=== PATIENT | male | born 1935 | race Caucasian/White ===

== ENCOUNTER 2017-11-27 06:01 | Outpatient (CLI) | payer MEDICARE ==
[~2017-11-27] VITALS: Ht 175.3 cm; Wt 87.3 kg
--- NOTE | ~2017-11-27 | HEMODYNAMI ---
PATIENT:VISH ROSS MEDICAL RECORD: [id number] : 35 LOCATION:[facility] ADMISSION DATE: 11/27/17 Generatedon:11/27/20178:34 Patient name: VISH ROSS Patient #: [id number] SSN: D OB: 1935 Date of study: 11/27/2017 Page: Of Hemodynamic Procedure Report Patient Data Patient Demographics Procedure consent was obtained First Name: VISH Gender: Male Last Name: VANDANA : 1935 Patient #: [id number] Age: 82 year(s) Race: Unknown Additional ID: [id number] Contact details Address: [address] [place] [address] DRIVE State: [place] City: [place] Zip code: [address] Past Medical History Allergies Allergen Reaction Date Comments Reported Penicillins 11/27/2017 Admission Admission Data Admission Date: 11/27/2017 Admission Time: 6:01 Procedure Procedure Types Cath Procedure Diagnostic Procedure LHC LHC w/Coronaries w/Grafts Aortic Root Angiography Sedation Charges Moderate Sedation up to 15 minutes PCI Procedure Coronary Stent Coronary Stent Initial Procedure Description Procedure Date Procedure Date: 11/27/2017 Procedure Start Time: 7:59 Procedure End Time: 8:34 Procedure Staff Name Function Ascencion Ornelas MD Performing Physician Beatriz Elliott RT Monitor Anushka Benitez RN Nurse Lindsey Julian RT Scrub Procedure Data Cath Procedure Fluoroscopy Diagnostic fluoroscopy Total fluoroscopy Time: 7.7 time: 7.7 min min Diagnostic fluoroscopy Total fluoroscopy dose: dose: 1007 mGy 1007 mGy Contrast Material Contrast Material Type Amount (ml) Isovue 370 112 Entry Location Entry Primary Successful Side Size Upsize Upsize Entry Closure Succes sful Closure Location (Fr) 1 (Fr) 2 (Fr) Remarks Device Remarks Femoral Right 5 Fr 6 Fr artery Short Estimated blood loss: 10 ml Diagnostic catheters Device Type Used For End Catheter Placement MULTIPACK JL 4.0 5Fr Left Coronary catheter Angiography DIAGNOSTIC AR MOD 5Fr Right Coronary Catheter ([id number]) Angiography DIAGNOSTIC AR MOD 5Fr SVG Angiography Catheter ([id number]) DIAGNOSTIC AR MOD 5Fr Right Coronary Catheter ([id number]) Angiography DIAGNOSTIC IM 5Fr Internal mammary catheter ([id number]) arteriography MULTIPACK Pigtail 5 Fr LV Angiography catheter MULTIPACK Pigtail 5 Fr Aortic Root catheter Angiography Procedure Complications No complications Procedure Medications Medication Administration Route Dosage Oxygen NC 2 l/min Lidocaine 2% added to field 20 Heparin Flush Bag added to field 2 bags (1000units/500ml NS) 0.9% NaCl I.V. 100 ml/hr Versed I.V. 1 mg Fentanyl I.V. 50 mcg Versed I.V. 1 mg Fentanyl I.V. 50 mcg Fentanyl I.V. 50 mcg Heparin Bolus I.V. 8500 units Fentanyl I.V. 50 mcg Hemodynamics Rest Heart Rate: 74 (bpm) Pressure Samples Time Site Value (mmHg) Purpose Heart Use Rate(bpm) 8:09 LV 113/-2,11 EDP 78 8:10 AO 113/47(73) Pullback 77 8:10 LV 115/-2,19 Pullback 77 Gradients Valve Time Site 1 Site 2 Mean SEP/DFP Peak To Heart Use (mmHg) (sec/min) Peak Rate (mmHg) (bpm) Aortic 8:10 LV AO 6 17 2 77 115/-2,19 113/47(73) Calculations Valve P-P Mean Valve Index Valve Source Name Gradient Area Flow (cm2) Aortic 2 6 2 6 Snapshots Pre Cath Intra NCS Post Cath Vital Signs Time Heart Resp SPO2 etCO2 NIBP Rhythm Pain Sedation Rate (ipm) (%) (mmHg) (mmHg) Status Level (bpm) 7:47:43 69 15 96 0 117/70(96) NSR 0 (11) 10(A) , No pain 7:52:30 72 16 95 0 120/66(98) NSR 0 (11) 10(A) , No pain 7:57:17 72 14 88 0 127/68(94) NSR 0 (11) 9(A) , No pain 8:02:05 74 16 95 0 125/69(93) NSR 0 (11) 9(A) , No pain 8:06:56 78 18 96 0 122/66(88) NSR 0 (11) 9(A) , No pain 8:11:45 75 13 96 8.2 109/61(93) NSR 0 (11) 9(A) , No pain 8:16:34 75 15 96 0 112/59(81) NSR 0 (11) 9(A) , No pain 8:21:18 82 15 95 0 102/67(86) NSR 0 (11) 9(A) , No pain 8:26:38 80 16 96 19.4 123/65(85) NSR 0 (11) 10(A) , No pain 8:31:27 77 13 97 0 124/67(85) NSR 0 (11) 10(A) , No pain Medications Time Medication Route Dose Verified Delivered Reason Notes Effectiveness by by 7:46:24 Oxygen NC 2 Ascencion Buffie used for l/min Johnson Benitez RN procedure 7:46:32 Lidocaine 2% added 20ml Ascencion Ascencion for local to vial Johnson Ornelas MD anesthetic field 7:46:38 Heparin Flush added 2 Ascencion Ascencion used for Bag to bags Johnson Ornelas MD procedure (1000units/500ml field NS) 7:46:46 0.9% NaCl I.V. 100 Ascencion Buffie Per physician ml/hr Johnson Benitez RN 7:51:48 Versed I.V. 1 mg Ascencion Buffie for sedation Johnson Benitez RN 7:51:53 Fentanyl I.V. 50 Ascencion Buffie for sedation mcg Johnson Benitez RN 8:01:03 Versed I.V. 1 mg Ascencion Buffie for sedation Johnson Benitez RN 8:01:07 Fentanyl I.V. 50 Ascencion Buffie for sedation regina Benitez RN 8:13:56 Fentanyl I.V. 50 Ascencion Buffie for sedation mcg Johnson Benitez RN 8:16:30 Heparin Bolus I.V. 8,500 Ascencion Buffie for verifie d units Johnson Benitez RN anticoagulation with dr ornelas 8:21:28 Fentanyl I.V. 50 Ascencion Buffie for sedation mcg Johnson Benitez RN Procedure Log Time Note 7:28:38 Time tracking: Regular hours (M-F 7:00 - 5:00) 7:28:42 Plan of Care:Hemodynamics will remain stable., Cardiac rhythm will remain stable., Comfort level will be maintained., Respiratory function will remain adequate., Patient/ family verbilizes understanding of procedure., Procedure tolerated without complication., Recovers from procedure without complications.. 7:30:37 Anushka Benitez RN sent for patient. Start room use. 7:36:05 Patient received from Pre/Post Procedure Room to CCL 1 Alert and oriented. Tansferred to table in Supine position. 7:36:06 Warm blankets applied, and yazmin hugger turned on for patient comfort. 7:36:07 Correct patient and procedure confirmed by team. 7:36:10 Signed procedure consent form obtained from patient. 7:36:11 ECG and BP/O2 sat monitors applied to patient. 7:36:12 Full Disclosure recording started 7:46:24 Oxygen 2 l/min NC was administered by Anushka Benitez RN; used for procedure; 7:46:32 Lidocaine 2% 20ml vial added to field was administered by Ascencion Ornelas MD; for local anesthetic; 7:46:38 Heparin Flush Bag (1000units/500ml NS) 2 bags added to field was administered by Ascencion Ornelas MD; used for procedure; 7:46:46 0.9% NaCl 100 ml/hr I.V. was administered by Anushka Benitez RN; Per physician; 7:46:50 Vital chart was started 7:47:17 Baseline sample Acquired. 7:47:19 Rhythm: sinus rhythm 7:47:43 H&P Date Dictated: 11/25/2017 Within 30 days and on chart., H&P Addendum completed by physician on day of procedure. (MUST COMPLETE FOR ALL OUTPATIENTS). 7:47:45 Pre-procedure instructions explained to patient. 7:47:45 Pre-op teaching completed and patient verbalized understanding. 7:47:47 Family in patients room. 7:47:49 Patient NPO since Midnight. 7:47:58 Patient allergic to Penicillins 7:48:00 Is the patient allergic to Iodine/contrast media? No. 7:48:02 Is patient on blood thinner?No 7:48:04 Patient diabetic? Yes. 7:48:05 If diabetic: On Metformin? No 7:48:08 Previous problem with sedation/anesthesia? No ? 7:48:09 Snore? Yes 7:48:09 Sleep apnea? No 7:48:10 Deviated septum? No 7:48:11 Opens mouth fully? Yes 7:48:11 Sticks out tongue? Yes 7:48:13 Airway obstruction? No ? 7:48:19 Dentures? Yes IN 7:48:32 Pre procedure: right dorsailis pedis pulse 2+ Normal; easily identifiable; not easily obliterated 7:48:35 Patient pain scale 0/10 ?. 7:49:07 IV patent on arrival in left hand with 0.9% NaCl at [facility]. 7:49:10 Lab results completed and on chart. 7:49:15 Right groin area was prepped with chlora-prep and draped in sterile fashion 7:49:15 Alarms reviewed by R. N. 7:49:16 Sharps counted by scrub and verified by R.N. 7:49:23 Use device set Femoral Dx 7:49:24 ACIST Syringe (55265) opened to sterile field. 7:49:24 Bag Decanter (2002S) opened to sterile field. 7:49:25 Medline Cath Pack ([id number]) opened to sterile field. 7:49:25 DIAGNOSTIC WIRE .035 260cm J wire (365685) opened to sterile field. 7:49:27 ACIST Hand Control (54985) opened to sterile field. 7:49:27 ACIST Manifold (92401) opened to sterile field. 7:49:28 DIAGNOSTIC Multipack 5Fr catheter set ([id number]) opened to sterile field. 7:49:29 Tegaderm 4 x 4 (1626W) opened to sterile field. 7:49:30 PERCUTANEOUS ENTRY 19GA needle opened to sterile field. 7:49:30 SHEATH Prelude 5Fr 0.035 ([id number]-6J-69-035) opened to sterile field. 7:49:53 Final Timeout: patient, procedure, and site verified with staff and physician. All members of the team are in agreement. 7:49:55 Right groin site verified by team. 7:49:58 Physical assessment completed. ASA score P 2 - A patient with mild systemic disease as per Ascencion Ornelas MD. 7:50:01 Sedation plan: IV Moderate Sedation Medication:Versed, Fentanyl 7:51:48 Versed 1 mg I.V. was administered by Anushka Benitez RN; for sedation; 7:51:53 Fentanyl 50 mcg I.V. was administered by Anushka Benitez RN; for sedation; 7:59:01 Baseline sample Acquired. 7:59:09 Procedure started. 7:59:13 Local anesthetic to right femoral artery with Lidocaine 2% by Ascencion Ornelas MD.INITIAL ACCESS ONLY 8:00:45 A 5 Fr sheath was inserted into the Right Femoral artery 8:01:03 Versed 1 mg I.V. was administered by Anushka Benitez RN; for sedation; 8:01:07 Fentanyl 50 mcg I.V. was administered by Anushka Benitez RN; for sedation; 8:01:36 A MULTIPACK JL 4.0 5Fr catheter was advanced over the wire and used for Left Coronary Angiography. 8:02:05 Catheter removed. 8:03:16 A DIAGNOSTIC AR MOD 5Fr Catheter ([id number]) was advanced over the wire and used for Right Coronary Angiography. 8:04:34 A DIAGNOSTIC AR MOD 5Fr Catheter ([id number]) was advanced over the wire and used for SVG Angiography.to CIRC 8:04:57 A DIAGNOSTIC AR MOD 5Fr Catheter (885163K) was advanced over the wire and used for Right Coronary Angiography. OCCLUDED 8:05:19 Catheter removed. 8:07:51 A DIAGNOSTIC IM 5Fr catheter ([id number]) was advanced over the wire and used for Internal mammary arteriography. GONZALEZ to LAD 8:08:06 Catheter removed. 8:08:20 A MULTIPACK Pigtail 5 Fr catheter was advanced over the wire and used for LV Angiography. 8:09:35 LV gram done using CAMPOS 8:09:39 EF : 60 % 8:09:40 LV hemodynamics recorded. 8:09:43 Injector settings: Ml/sec: 10, Volume: 20, 8:10:59 A MULTIPACK Pigtail 5 Fr catheter was advanced over the wire and used for Aortic Root Angiography. 8:11:08 Catheter removed. 8:11:15 Use device set ORNELAS PCI 8:11:17 SHEATH Prelude 6Fr 0.035 (DDP-1E-18-035) opened to sterile field. 8:11:21 TUBING High Pressure Extension Tubing (Johnson) ([id number]) opened to sterile field. 8:11:22 INFLATOR Merit BasixCompak (ZR4950) opened to sterile field. 8:11:25 BMW 300cm Iron Belt 2 J wire ([id number]) opened to sterile field. 8:11:43 Sheath upsized to a 6 Fr Short. 8:13:50 6 Fr AR 1.0 guide catheter was inserted over the wire 8:13:56 Fentanyl 50 mcg I.V. was administered by Anushka Benitez RN; for sedation; 8:16:30 Heparin Bolus 8,500 units I.V. was administered by Anushka Benitez RN; for anticoagulation; verified with dr ornelas 8:16:34 BMW wire advanced. 8:19:14 Inflate balloon Inflation number: 1 A EMERGE OTW 2.5 x 12 balloon ([id number]) was prepped and advanced across the Prox RCA, then inflated to 14 BRENT for 0:21 (min:sec). 8:20:17 Balloon removed over the wire. 8:21:28 Fentanyl 50 mcg I.V. was administered by Anushka Benitez RN; for sedation; 8:22:50 Place stent Inflation Number: 2 A INTEGRITY OTW 3.5 X 12 stent ([id number]) was prepped and advanced across the Prox RCA. The stent was deployed at 15 BRENT for 0:27 (min:sec). 8:26:53 Stent catheter was removed intact over wire. 8:26:53 Wire removed. 8:26:54 Guide catheter removed. 8:26:56 Procedure ended.(Physican Out) 8:27:10 Fluoroscopy time 07.70 minutes. 8:27:14 Fluoroscopy dose: 1007 mGy 8:27:14 Flurop Dose total: 1007 8:27:20 Contrast amount:Isovue 370 112ml. 8:27:21 Sharps counted by scrub and verified by R.N. 8:27:22 Insertion/operative site no bleeding no hematoma. 8:27:27 Post-op/insertion site Right Femoral artery dressed using a 4 x 4 and Tegaderm. 8:27:31 Post right femoral artery:stable, clean and dry 8:27:32 Post Procedure Pulses reassessed and unchanged 8:27:35 Post-procedure physical assessment completed. ASA score P 2 - A patient with mild systemic disease as per Ascencion Ornelas MD. 8:27:39 Post procedure rhythm: unchanged. 8:27:41 Estimated blood loss: 10 ml 8:27:44 Post procedure instruction explained to patient.Patient verbalizes understanding. 8:27:44 Patient needs reinforcement of post procedure teaching. 8:29:07 Procedure type changed to Cath procedure, Diagnostic procedure, LHC, LHC w/Coronaries w/Grafts, Aortic Root Angiography, Sedation Charges, Moderate Sedation up to 15 minutes, PCI procedure, Coronary Stent, Coronary Stent Initial 8:29:20 Procedure Complication : No complications 8:29:22 See physician's report for complete and final results. 8:29:32 EXOSEAL 6Fr (EX600) opened to sterile field. 8:30:06 GUIDE 6FR AR 1.0 catheter ([id number]) opened to sterile field. 8:31:32 Procedure and supply charges have been captured, reviewed, submitted and are correct. 8:33:52 Vital chart was stopped 8:33:53 Report given to ED. 8:33:56 Patient transfered to Pre/Post Procedure Room with Stretcher. 8:34:05 Procedure ended. 8:34:05 Full Disclosure recording stopped 8:34:10 End room use (Document Last) Intervention Summary Intervention Notes Time ActionType Lesion and Equipment Action# Pressure Duration Attributes Used 8:19:14 Inflate Prox RCA EMERGE OTW 1 14 00:21 balloon 2.5 x 12 balloon ([id number]) 8:22:50 Place stent Prox RCA INTEGRITY 2 15 00:27 OTW 3.5 X 12 stent ([id number]) Device Usage Item Name Manufacture Quantity Catalog Number Hospital Part Current Minimal Lot# / Charge Number Stock Stock Serial# Code ACIST Syringe Acist 1 07360 572626 136841 984351 20 (33695) Medical Systems Inc Bag Decanter Microtek 1 2001S 082110 89582 297519 5 (2001S) Medical Inc. Medline Cath Cardinal 1 [id number] 796583 03768 770516 5 Pack Health ([id number]) DIAGNOSTIC WIRE [place] 1 452580 345303 708563 785237 30 .035 260cm J wire (357027) ACIST Hand Acist 1 32350 138972 913268 931722 5 Control (94982) [employer] Inc ACIST Manifold Acist 1 38560 262357 744680 735048 5 (93051) Medical Systems Inc DIAGNOSTIC Cardinal 1 YQ1547 253494 52315 173901 30 Multipack 5Fr Health catheter set (MS6606) Tegaderm 4 x 4 3M 1 1626W 847068 996806 795642 5 (1626W) PERCUTANEOUS Cook Medical 1 D90004 856769 468658 5 ENTRY 19GA needle SHEATH Prelude Merit 1 VUN-4R-97-035 759978 236678 612902 5 5Fr 0.035 Medical (PWQ-3N-01-035) MULTIPACK JL Cardinal 1 413423 5 4.0 5Fr Health catheter DIAGNOSTIC AR Cardinal 1 [id number] 323762 629681 510981 15 MOD 5Fr Health Catheter (956325H) DIAGNOSTIC IM Cardinal 1 [id number] 210281 517117 426956 5 5Fr catheter Health (677310C) MULTIPACK Cardinal 1 795439 5 Pigtail 5 Fr Health catheter SHEATH Prelude Merit 1 MNO-2T-43-35 564108 4242222 471123 5 6Fr 0.035 Medical (FBS-5B-51-035) TUBING High Merit 1 PV1463Y 862888 95617 175237 10 Pressure Medical Extension Tubing (Ornelas) (TX1214I) INFLATOR Merit Merit 1 UK1833 852897 131675 186722 15 BasixCompak Medical (BP0401) BMW 300cm [place] 1 [id number] 208019 563073 094255 5 Iron Belt 2 J Vascular wire (0692367C) EMERGE OTW 2.5 [place] 1 [id number] 696574 453566 209944 5 24083289 x 12 balloon Scientific ([id number]) INTEGRITY OTW Medtronic 1 [id number] 168146 888265 6 [id number] 3.5 X 12 stent ([id number]) EXOSEAL 6Fr Cardinal 1 EX600 595723 306481 340095 10 (EX600) Health GUIDE 6FR AR Medtronic 1 [id number] 466486 95878 447419 1 1.0 catheter (BS0ES41) Signature Audit Dickinson Stage Time Signature Unsigned Intra-Procedure 11/27/2017 Beatriz 8:34:19 AM Counts RT(R) Signatures Monitor : Beatriz Signature : Counts RT Date : Time : [address] [address]
[2017-11-27] MEDS ORDERED: PLAVIX75 MG PO (06:20)
[2017-11-27] MEDS ORDERED: COZAAR100 MG PO (06:36)
[2017-11-27] MEDS ORDERED: NORVASC10 MG PO (06:37)
[2017-11-27] MEDS ORDERED: ZOCOR20 MG PO (06:37)
[2017-11-27 06:43] VITALS: BP 117/58; Ht 175.3 cm; Wt 87.3 kg
[2017-11-27 06:46] LABS: BASOPHILS 0.4 % (0-2); EOSINOPHILS 2.1 % (0-7); HEMATOCRIT 40.5 % (42.0-54.0); HEMOGLOBIN 14.5 g/dL (13.5-17.5); IMMATURE GRANULOCYTES 0.1 % (0-5); LYMPHOCYTES 23.2 % (15-50); MCH 33.3 pg (26.0-34.0); MCHC 35.8 g/dL (31.0-37.0); MCV 93.1 fL (80.0-100.0); MEAN PLATELET VOLUME 9.8 fL (7.4-10.4); MONOCYTES 7.6 % (2-11); NEUTROPHILS 66.6 % (40-80); PLATELET COUNT 203 10x3/uL (130-400); RBC 4.35 10x6/uL (4.20-6.10); RDW 13.3 % (11.5-14.5); WBC 7.9 10x3/uL (4.8-10.8)
[2017-11-27 06:59] LABS: CALCIUM 9.3 mg/dL (8.5-10.1); CARBON DIOXIDE 25.2 mmol/L (21.0-32.0); CREATININE - SERUM 1.4 mg/dL (0.6-1.3); POTASSIUM - SERUM 4.2 mmol/L (3.5-5.1)
[2017-11-27] MEDS ORDERED: BAYER CHEWABLE81 MG PO (09:19)
== END 2017-11-27 13:00 | disposition home or self-care (01) ==
LOC: D.CATH 06:01
PROVIDERS: Internal Medicine Cardiovascular Disease
DX: I21.4 Non-ST elevation (NSTEMI) myocardial infarction (principal); Z01.812 Encounter for preprocedural laboratory examination; Z95.1 Presence of aortocoronary bypass graft

== ENCOUNTER 2018-03-18 11:18 | Outpatient (CLI) | payer MEDICARE ==
[~2018-03-18] VITALS: Ht 175.3 cm; Wt 82.7 kg
[~2018-03-18 11:18] MED LIST: BAYER CHEWABLE81 MG PO; COZAAR100 MG PO; NORVASC10 MG PO; PLAVIX75 MG PO; ZOCOR20 MG PO
[2018-03-18 12:46] VITALS: BP 125/59; Ht 175.3 cm; Wt 82.7 kg
== END 2018-03-18 18:40 | disposition home or self-care (01) ==
LOC: D.CT 11:18 → D.SDCHOLD 12:18 → D.CT 18:40
DX: I12.9 Hypertensive chronic kidney disease with stage 1 through stage 4 chronic kidney disease, or unspecified chronic kidney disease (principal); N18.3 Chronic kidney disease, stage 3 (moderate); Q61.9 Cystic kidney disease, unspecified; R41.0 Disorientation, unspecified

== ENCOUNTER → 2018-11-18 12:14 | Outpatient (CLI) | payer OTHER ==
[2018-03-18 12:46] VITALS: BMI 26.9
== END | disposition home or self-care (01) ==
LOC: D.HCCARDIO 12:14
PROVIDERS: ATTEND Internal Medicine Cardiovascular Disease
DX: I25.10 Atherosclerotic heart disease of native coronary artery without angina pectoris (principal)

== ENCOUNTER → 2019-03-15 12:05 | Outpatient (CLI) | payer OTHER ==
[2018-03-18 12:46] VITALS: BMI 26.9
[~2019-03-15 12:05] MED LIST changes: +ATIVAN1 MG PO; +CELEXA40 MG PO; +CO Q-10100 MG PO; +FISH OIL 1,0001 CA1 PO; +MULTI-DAY VITAM1 TAB PO; +NAMENDA5 MG PO; +VITAMIN C500 M1 PO
== END | disposition home or self-care (01) ==
LOC: D.HCCARDIO 12:05
PROVIDERS: ATTEND Internal Medicine Cardiovascular Disease
DX: I25.810 Atherosclerosis of coronary artery bypass graft(s) without angina pectoris (principal)

== ENCOUNTER 2019-03-30 10:46 | Outpatient (CLI) | payer OTHER ==
[~2019-03-30] VITALS: Ht 172.7 cm; Wt 80.9 kg
--- NOTE | ~2019-03-30 | HEMODYNAMI ---
PATIENT:VISH ROSS MEDICAL RECORD: [id number] : 35 LOCATION:[facility] ADMISSION DATE: 03/30/19 Generatedon:03/30/201913:53 Patient name: VISH ROSS Patient #: [id number] SSN: [id number] : 1935 Date of study: 03/30/2019 Page: Of Hemodynamic Procedure Report Patient Data Patient Demographics Procedure consent was obtained First Name: VISH Gender: Male Last Name: VANDANA : 1935 Patient #: [id number] Age: 83 year(s) Race: Unknown SSN: [id number] Additional ID: [id number] Contact details Address: [address] [place] [address] State: [place] City: [place] Zip code: [address] Past Medical History Allergies Allergen Reaction Date Comments Reported Penicillins 11/27/2017 Admission Admission Data Admission Date: 03/30/2019 Admission Time: 10:46 Arrival Date: 03/30/2019 Arrival Time: 0:00 Admit Source: Other Insurance Payor: Private health insurance [facility] #: [id number] Height (in.): 67.72 BSA: 1.93 (m2) Height (cm.): 172 BMI: 27.04 (kg/m2) Weight (lbs.): 176.37 Weight (kg.): 80 Lab Results Lab Result Date: 03/30/2019 Lab Result Time: 0:00 Biochemistry Name Units Result Min Max BUN mg/dl 26 --(----)-* 7 18 Creatinine mg/dl 1.2 --(---*)-- 0.6 1.3 eGFR ml/min 61.67872 *-(----)-- 90 120 NONAFRICAN CBC Name Units Result Min Max Hemoglobin g/dl 14.6 --(-*--)-- 13.5 17.5 Procedure Procedure Types Cath Procedure Diagnostic Procedure LHC LHC w/Coronaries w/Grafts Sedation Charges Moderate Sedation up to 15 minutes Moderate Sedation up to 30 minutes Procedure Description Procedure Date Procedure Date: 03/30/2019 Procedure Start Time: 13:15 Procedure End Time: 13:48 Procedure Staff Name Function Ascencion Ornelas MD Performing Physician Mel Horan RT Monitor Peri Dockery RN Nurse Yvonne Mike RT Scrub Procedure Data Cath Procedure Fluoroscopy Diagnostic fluoroscopy Total fluoroscopy Time: 5.3 time: 5.3 min min Diagnostic fluoroscopy Total fluoroscopy dose: 855 dose: 855 mGy mGy Contrast Material Contrast Material Type Amount (ml) Isovue 300 106 Entry Location Entry Primary Successful Side Size Upsize Upsize Entry Closure [place] ccessful Closure Location (Fr) 1 (Fr) 2 (Fr) Remarks Device Remarks Femoral Left 5 Fr Exoseal artery Femoral Right 4 Fr unable Manual artery to cross Compression with 5 fr. 4 fr sheath pulled Estimated blood loss: 10 ml Diagnostic catheters Device Type Used For End Catheter Placement MULTIPACK JL 4.0 5Fr Procedure catheter DIAGNOSTIC AR1 MOD 5Fr Procedure catheter ([id number]) DIAGNOSTIC IM 5Fr Procedure catheter ([id number]) MULTIPACK Pigtail 5 Fr Procedure catheter Procedure Complications No complications Procedure Medications Medication Administration Route Dosage 0.9% NaCl I.V. 100 ml/hr Lidocaine 2% added to field 20 Heparin Flush Bag added to field 2 bags (1000units/500ml NS) Oxygen NC 2 l/min Versed I.V. 1 mg Fentanyl I.V. 50 mcg Versed I.V. 0.5 mg Hemodynamics Rest BSA: 1.93 (m2) O2 Consumption: Estimated: 218.97 (ml/min) O2 Consumption indexed : Estimated:113.46 (ml/min/m) Heart Rate: 69 (bpm) Pressure Samples Time Site Value (mmHg) Purpose Heart Use Rate(bpm) 13:42 LV 122/-6,11 Snapshot 69 13:42 AO 158/36(80) Pullback 55 13:42 LV 125/-4,10 Pullback 55 Gradients Valve Time Site 1 Site 2 Mean SEP/DFP Peak To Heart Use (mmHg) (sec/min) Peak Rate (mmHg) (bpm) Aortic 13:42 LV AO 0 17 0 55 125/-4,10 158/36(80) Calculations Valve P-P Mean Valve Index Valve Source Name Gradient Area Flow (cm2) Aortic 0 0 0 0 Snapshots Pre Cath Intra NCS Post Cath Vital Signs Time Heart Resp SPO2 etCO2 NIBP (mmHg) Rhythm Pain Sedation Rate (ipm) (%) (mmHg) Status Level (bpm) 12:55:06 67 23 98 29.4 135/76(119) NSR 0 (11) 10(A) , No pain 12:59:18 59 18 100 24.8 140/76(119) NSR 0 (11) 10(A) , No pain 13:03:32 63 14 95 30.1 136/72(116) NSR 0 (11) 10(A) , No pain 13:07:42 64 15 93 30.9 137/77(113) NSR 0 (11) 10(A) , No pain 13:11:52 65 12 92 0 138/78(112) NSR 0 (11) 9(A) , No pain 13:16:04 62 14 94 0 132/74(118) NSR 0 (11) 9(A) , No pain 13:20:12 64 13 94 9.8 132/79(111) NSR 0 (11) 9(A) , No pain 13:24:20 65 19 94 8.3 140/79(122) NSR 0 (11) 9(A) , No pain 13:28:30 65 13 94 9 140/83(113) NSR 0 (11) 9(A) , No pain 13:32:43 67 14 94 0 95/74(91) NSR 0 (11) 9(A) , No pain 13:37:36 69 13 95 12.8 135/74(108) NSR 0 (11) 9(A) , No pain 13:41:48 68 14 94 15 132/72(108) NSR 0 (11) 9(A) , No pain 13:46:00 70 14 94 17.3 134/73(106) NSR 0 (11) 10(A) , No pain Medications Time Medication Route Dose Verified Delivered Reason Notes Eff ectiveness by by 12:54:13 0.9% NaCl I.V. 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 1 mg Ascencion Peri for Johnson Dockery sedation RN 13:05:12 Fentanyl I.V. 50 Ascencion Peri for mcg Johnson Dockery sedation RN 13:17:19 Versed I.V. 0.5 Ascencion Peri for mg Johnson Dockery sedation cable assembler Log Time Note 12:32:02 Informed consent obtained and on chart 12:38:28 Patient Height : 67.72 inches 12:38:33 Patient Weight : 176.37 lbs 12:38:37 Arrival Date: 03/30/2019 12:00:00 AM 12:38:40 Admit Source: Other 12:38:49 Insurance Payor : Private health insurance 12:39:40 Lab Result : BUN 26 mg/dl 12:39:40 Lab Result : eGFR NONAFRICAN 61.40406 ml/min 12:39:40 Lab Result : Hemoglobin 14.6 g/dl 12:39:40 Lab Result : Creatinine 1.2 mg/dl 12:40:35 Procedure Status Elective Heart Cath (OP). 12:41:06 ACC Patient presents with Stable Angina CCS Anginal Class 3--Marked limitation of physical activity, angina occurs with ordinary activity.. 12:41:55 Yvonne Mike RT(R) sent for patient. Start room use. 12:41:57 Time tracking: Regular hours (M-F 7:00 - 5:00) 12:42:03 Plan of Care:Hemodynamics will remain stable., Cardiac rhythm will remain stable., Comfort level will be maintained., Respiratory function will remain adequate., Patient/ family verbilizes understanding of procedure., Procedure tolerated without complication., Recovers from procedure without complications.. 12:42:08 Patient received from Pre/Post Procedure Room to CCL 2 Alert and oriented. Tansferred to table in Supine position. 12:42:28 H&P Date Dictated: 03/08/2019 Within 30 days and on chart.. 12:42:32 Pre-procedure instructions explained to patient. 12:42:34 Family in waiting room. 12:42:36 Patient NPO since Midnight. 12:43:31 1) 90+ Normal kidney functon but urine findings or structural abnormalities or genetic trait point to kidney disease. 12:43:53 Maximum allowable contrast dose (3.7 X eGFR X 0.75)169 ml. 12:44:00 Use device set Femoral Dx 12:44:02 ACIST Syringe (26208) opened to sterile field. 12:44:03 Bag Decanter (2002S) opened to sterile field. 12:44:03 Medline Cath Pack ([id number]) opened to sterile field. 12:44:05 ACIST Hand Control (81303) opened to sterile field. 12:44:05 ACIST Manifold (28205) opened to sterile field. 12:44:06 DIAGNOSTIC Multipack 5Fr catheter set ([id number]) opened to sterile field. 12:44:06 Tegaderm 4 x 4 (1626W) opened to sterile field. 12:44:07 MICROPUNCTURE 4FR Cook ([id number]) opened to sterile field. 12:44:13 SHEATH 5FR Pace (EVY993) opened to sterile field. 12:44:14 EMERALD Guide Wire (440-273) opened to sterile field. 12:53:51 Vital chart was started 12:54:13 0.9% NaCl 100 ml/hr I.V. was administered by Peri Dockery RN; used for procedure; Verbal order read back and verified. 12:54:24 Lidocaine 2% 20ml vial added to field was administered by Peri Dockery RN; for local anesthetic; Verbal order read back and verified. 12:54:33 Heparin Flush Bag (1000units/500ml NS) 2 bags added to field was administered by Peri Dockery RN; used for procedure; Verbal order read back and verified. 12:54:42 Oxygen 2 l/min NC was administered by Peri Dockery RN; for low 02 sats; Verbal order read back and verified. 13:00:33 Is the patient allergic to Iodine/contrast media? No. 13:00:40 Was the patient premedicated? Yes 13:00:42 Is patient on blood thinner?No 13:00:45 Patient diabetic? No. 13:00:53 Snore? Yes 13:00:55 Sleep apnea? No 13:01:11 Dentures? Yes in 13:01:40 IV patent on arrival in left forearm with 0.9% NaCl at [facility]. 13:02:10 Lab results completed and on chart. 13:02:14 Right groin area was prepped with chlora-prep and draped in sterile fashion 13:02:14 Alarms reviewed by RAlecia N. 13:02:15 Sharps counted by scrub and verified by R.N. 13:02:16 Physician arrived 13:02:17 --------ALL STOP TIME OUT------ 13:02:18 Final Timeout: patient, procedure, and site verified with staff and physician. All members of the team are in agreement. 13:02:20 Right groin site verified by team. 13:02:26 Fire Safety Assessment: A--An alcohol-based skin anteseptic being used preoperatively., C--Open oxygen or nitrous oxide is being used., D--An ESU, laser, or fiber-optic light is being used. 13:02:32 Sedation plan: IV Moderate Sedation Medication:Versed, Fentanyl 13:04:59 Versed 1 mg I.V. was administered by Peri Dockery RN; for sedation; Verbal order read back and verified. 13:05:12 Fentanyl 50 mcg I.V. was administered by Peri Dockery RN; for sedation; Verbal order read back and verified. 13:15:07 Procedure started. 13:15:07 Full Disclosure recording started 13:15:58 Local anesthetic to right femoral artery with Lidocaine 2% by Ascencion Ornelas MD.INITIAL ACCESS ONLY 13:17:19 Versed 0.5 mg I.V. was administered by Peri Dockery RN; for sedation; Verbal order read back and verified. 13:24:[address] [place] ([id number]) opened to sterile field. 13:24:59 5 fr sheath unable to cannulate. 4 fr sheath inserted and exchanged for 5 fr but still unable to cannulate 13:25:19 left groin prepped. 13:25:30 A 4 Fr sheath was inserted into the Right Femoral arteryunable to cross with 5 fr. 4 fr sheath pulled 13:25:33 Sheath removed intact; hemostasis achieved with Manual Compression to the Right Femoral artery. 13:27:59 Local anesthetic to left femerol artery with Lidocaine 2% by Ascencion Ornelas MD.ADDITIONAL ACCESS 13:28:52 A 5 Fr sheath was inserted into the Left Femoral artery 13:30:03 A MULTIPACK JL 4.0 5Fr catheter was advanced over the wire and used for Procedure. 13:30:26 LCA angiography performed. 13:31:28 Catheter removed. 13:31:43 A DIAGNOSTIC AR1 MOD 5Fr catheter ([id number]) was advanced over the wire and used for Procedure. 13:33:03 RCA angiography performed. 13:38:24 SVG to RCA angiography performed. 13:38:28 SVG to Circ angiography performed. 13:38:31 Catheter removed. 13:38:49 A DIAGNOSTIC IM 5Fr catheter ([id number]) was advanced over the wire and used for Procedure. 13:38:59 GONZALEZ to LAD angiography performed. 13:40:42 Catheter removed. 13:40:50 A MULTIPACK Pigtail 5 Fr catheter was advanced over the wire and used for Procedure. 13:40:54 LV gram done using CAMPOS 13:41:08 Zero performed for pressure channel P1 13:42:29 EF : 55 % 13:42:55 Catheter removed. 13:42:57 EXOSEAL 5Fr (EX500) opened to sterile field. 13:44:43 Sheath removed intact; hemostasis achieved with Exoseal to the Left Femoral artery. 13:45:25 Procedure ended.(Physican Out) 13:45:49 Fluoroscopy time 05.30 minutes. 13:45:54 Flurop Dose total: 855 13:45:54 Fluoroscopy dose: 855 mGy 13:45:59 Dose Area Product 04748 mGy/cm. 13:46:07 Contrast amount:Isovue 300 106ml. 13:46:12 Maximum allowable dose exceeded? No. 13:46:14 Sharps counted by scrub and verified by R.N. 13:46:18 Insertion/operative site no bleeding no hematoma. 13:46:31 Post-op/insertion site Right Femoral artery dressed using a 4 x 4 and Tegaderm. 13:46:36 Post-op/insertion site Left Femoral artery dressed using a 4 x 4 and Tegaderm. 13:46:43 Post right femoral artery:stable 13:46:52 Post left femerol artery:stable 13:46:55 Post Procedure Pulses reassessed and unchanged 13:47:04 Post-procedure physical assessment completed. ASA score P 3 - A patient with severe systemic disease as per Ascencion Ornelas MD. 13:47:07 Post procedure rhythm: unchanged. 13:47:12 Estimated blood loss: 10 ml 13:47:14 Post procedure instruction explained to patient.Patient verbalizes understanding. 13:47:29 Procedure type changed to Cath procedure, Diagnostic procedure, LHC, LHC w/Coronaries w/Grafts, Sedation Charges, Moderate Sedation up to 15 minutes, Moderate Sedation up to 30 minutes 13:47:31 Procedure and supply charges have been captured, reviewed, submitted and are correct. 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 13:48:23 See physician's report for complete and final results. 13:48:26 Report given to Pre/Post Procedure Room. 13:48:29 Patient transfered to Pre/Post Procedure Room with Stretcher. 13:48:32 Procedure ended. 13:48:32 Full Disclosure recording stopped 13:48:38 End room use (Document Last) Device Usage Item Name Manufacture Quantity Catalog Hospital Part Current Minimal Lot# / Number Charge Number Stock Stock Serial# Code ACIST Syringe Acist 1 74845 090098 567942 238657 20 (96969) Medical Systems Inc Bag Decanter Microtek 1 2001S 103306 67026 200300 5 () Medical Inc. Medline Cath Medline 1 [id number] 182935 62134 050348 5 Pack ([id number]) ACIST Hand Acist 1 42335 186181 462167 430445 5 Control Medical (98721) Systems Inc ACIST Acist 1 83714 988450 086934 178315 5 Manifold Medical (50003) Systems Inc DIAGNOSTIC Cardinal 1 QT4130 661274 47272 583753 30 Multipack 5Fr Health catheter set (TF1607) Tegaderm 4 x 3M 1 1626W 920546 366873 395675 5 4 (1626W) MICROPUNCTURE DDN Medical 1 S93229 463230 529946 241075 5 4FR Cook (I55269) SHEATH 5FR Terumo 1 ZOY224 167451 797055 286464 5 Pace (UHA805) EMERALD Guide Cardinal 1 502-672 333801 878730 673890 5 Wire Health (502455) SHEATH 4FR [facility] [place] 1 561096 692771 168683 159834 5 [place] (897996) MULTIPACK JL Cardinal 1 377475 5 4.0 5Fr Health catheter DIAGNOSTIC Cardinal 1 [id number] 044264 812283 295878 15 AR1 MOD 5Fr Health catheter (467058U) DIAGNOSTIC IM Cardinal 1 [id number] 783970 595184 408737 5 5Fr catheter Health (354981E) MULTIPACK Cardinal 1 089354 5 Pigtail 5 Fr Health catheter EXOSEAL 5Fr Cardinal 1 EX500 633785 038852 226095 10 (EX500) Health Signature Audit [place] Stage Time Signature Unsigned Intra-Procedure 03/30/2019 Mel Horan 1:51:59 PM RT(R) Intra-Procedure 03/30/2019 Peri 1:52:31 PM Nahed GARCIA Intra-Procedure 03/30/2019 Ascencion Ornelas MD 1:53:13 PM Signatures Performing Physician : Signature : Ascencion Ornelas MD Date : Time : Monitor : Mel Horan Signature : RT Date : Time : Nurse : Peri Signature : Nahed GARCIA Date : Time : [facility] [address] [place] [address]
[~2019-03-30 10:46] MED LIST changes: -ATIVAN1 MG PO; -CELEXA40 MG PO; -CO Q-10100 MG PO; -FISH OIL 1,0001 CA1 PO; -MULTI-DAY VITAM1 TAB PO; -NAMENDA5 MG PO; -VITAMIN C500 M1 PO
[2019-03-30] MEDS ORDERED: ATIVAN1 MG PO (11:44)
[2019-03-30] MEDS ORDERED: NAMENDA5 MG PO (11:46)
[2019-03-30] MEDS ORDERED: VITAMIN C500 M1 PO (11:46)
[2019-03-30] MEDS ORDERED: CO Q-10100 MG PO (11:47)
[2019-03-30] MEDS ORDERED: MULTI-DAY VITAM1 TAB PO (11:47)
[2019-03-30] MEDS ORDERED: FISH OIL 1,0001 CA1 PO (11:48)
[2019-03-30] MEDS ORDERED: CELEXA40 MG PO (11:48)
[2019-03-30 11:56] VITALS: BP 129/53; Ht 172.7 cm; Wt 80.9 kg
[2019-03-30 12:10] LABS: BASOPHILS 0.4 % (0-2); EOSINOPHILS 4.2 % (0-7); HEMATOCRIT 41.3 % (42.0-54.0); HEMOGLOBIN 14.6 g/dL (13.5-17.5); LYMPHOCYTES 30.8 % (15-50); MCH 34.4 pg (26.0-34.0); MCHC 35.4 g/dL (31.0-37.0); MCV 97.2 fL (80.0-100.0); MEAN PLATELET VOLUME 9.6 fL (7.4-10.4); MONOCYTES 10.3 % (2-11); NEUTROPHILS 54.3 % (40-80); RBC 4.25 10x6/uL (4.20-6.10); RDW 13.1 % (11.5-14.5); WBC 5.1 10x3/uL (4.8-10.8)
[2019-03-30 12:13] LABS: PLATELET COUNT 139 10x3/uL (130-400)
[2019-03-30 12:23] LABS: ANION GAP 10.5 mmol/L (8-16); CALCIUM 8.5 mg/dL (8.5-10.1); CREATININE - SERUM 1.2 mg/dL (0.6-1.3); LDL-HDL RATIO 2.9 ratio (1.5-3.5); POTASSIUM - SERUM 4.5 mmol/L (3.5-5.1)
--- NOTE | 2019-03-30 14:15 | NUR ---
DR AUGUSTE HAS ROUNDED ON PT. PT DENIES ANY C/O. DRESSING IS CDI AND PEDAL PULSES PALPABLE. NSR, RATE IS 63, BP IS 134/66. HOB IS FLAT, PT INSTRUCTED TO KEEP HEAD FLAT TO PILLOW AND RIGHT LEG STRAIGHT AND VERBALIZES UNDERSTANDING. BED IS LOCKED AND LOW, SIDE RAILS UP X2, SON AT BEDSIDE, CALL LIGHT IN REACH.
--- NOTE | 2019-03-30 14:31 | NUR ---
PT DENIES ANY C/O. HOB IS FLAT, DRESSING CDI, PEDAL PULSES PALPABLE. VSS.
--- NOTE | 2019-03-30 14:49 | NUR ---
HOB IS FLAT, PT IS AWAKE AND DENIES ANY C/O. DRESSING CDI LEFT GROIN, AREA IS SOFT AND NONTENDER. PEDAL PULSES PALPABLE. VSS, SON AT BEDSIDE.
--- NOTE | 2019-03-30 15:05 | NUR ---
DRESSING CDI LEFT GROIN, AREA IS SOFT AND NONTENDER. PEDAL PULSES PALPABLE. PT DENIES ANY C/O. HOB IS FLAT, SON AT BEDSIDE. NSR, RATE IS 60, BP IS 113/60.
--- NOTE | 2019-03-30 15:18 | NUR ---
HOB ELEVATED 30 DEGREES, DRESSING CDI LEFT GROIN, PEDAL PULSES PALPABLE. PT ALERT AND DENIES ANY C/O. VSS, SON AT BEDSIDE. PO FLUIDS AND SANDWICH SERVED.
--- NOTE | 2019-03-30 15:51 | NUR ---
DRESSING REMAINS CDI LEFT GROIN, AREA IS SOFT AND NONTENDER. PEDAL PULSES PALPABLE. HOB IS FULLY ELEVATED. PT IS ALERT AND DENIES ANY C/O. [facility] PT ARJUN SANDWICH AND PO FLUIDS WITH NO C/O NAUSEA.
--- NOTE | 2019-03-30 16:29 | NUR ---
1615 DRESSING REMAINS CDI LEFT GROIN, AREA IS SOFT AND NONTENDER, PEDAL PULSES PALPABLE. PT HAS ARJUN SANDWICH WITH NO C/O NAUSEA. DC INSTRUCTIONS REVIEWED WITH PT AND SON WHO VEBALIZE UNDERSTANDING. IV DC'D WITH CATH INTACT. PT HAS VOIDED 525 CC CLEAR YELLOW URINE TO URINAL.
--- NOTE | 2019-03-30 16:31 | NUR ---
1630 PT DRESSED FOR DISCHARGE WITH ASSIST FROM NURSE AND SON, DDRESSING REMAINS CDI LEFT GROIN, PEDAL PULSES PALPABLE. PT DENIES ANY NV DEFICIT TO LLE. IS ALERT AND DENIES ANY C/O. PT ESCORTED TO PRIVATE AUTO VIA WC BY NURSE WITH SON DRIVING HIM HOME.
== END 2019-03-30 16:30 | disposition home or self-care (01) ==
LOC: D.CATH 10:46
PROVIDERS: ATTEND Internal Medicine Cardiovascular Disease
DX: I25.110 Atherosclerotic heart disease of native coronary artery with unstable angina pectoris (principal); R94.30 Abnormal result of cardiovascular function study, unspecified